=== PATIENT | male | born 1965 | race Caucasian/White ===

== ENCOUNTER 2017-10-11 15:40 | Emergency (ER) | payer SELFPAY ==
[2017-10-11] MEDS ORDERED: KEFZOL 1 GM IM ONE (15:50)
[2017-10-11] MEDS ORDERED: BACIGUENT PACKET TP ONE (15:50)
[2017-10-11] MEDS ORDERED: KEFZOL 1 GM ONE (15:52)
[2017-10-11] MEDS ORDERED: XYLOCAINE 1% HCL 20 ML MDV IJ ONE (15:56)
[2017-10-11] MEDS ORDERED: XYLOCAINE 1% HCL 20 ML MDV ONE ×2 (15:59→16:01)
[2017-10-11] MEDS ORDERED: BACIGUENT PACKET ONE (16:01)
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
--- NOTE | 2017-10-11 17:01 | XRAY ---
Indication: Foreign body removal. Comparison: Taken earlier in the day. 3 views of the left wrist demonstrates successful complete removal of the previous nail. No other bony, articular, or soft tissue abnormalities.
[2017-10-11 17:15] VITALS: BP 132/85; PULSE 80; O2SAT 95
== END 2017-10-11 17:17 | disposition home or self-care (01) ==
LOC: ED 15:40
DX: M79.5 Residual foreign body in soft tissue (principal); W45.0XXA Nail entering through skin, initial encounter; W29.4XXA Contact with nail gun, initial encounter; Y93.H3 Activity, building and construction
CPT/HCPCS: 73110; 96372; 99284; J0690; A9270-GY